=== PATIENT | female | born 1975 | race Caucasian/White ===

== ENCOUNTER 2017-10-06 10:07 | Inpatient (IN) | payer OTHER, MEDICAID ==
--- NOTE | 2017-10-06 10:27 | EDPHY ---
H & P HPI/ROS: Chief Complaint: High blood sugar HPI: 42-year-old woman with a history of type 2 diabetes coming from [facility] with a blood sugar that is too high to read. Patient states she has been feeling unwell since yesterday. She has had general fatigue, lightheadedness, frequent urination. Has not had any fevers or chills. No cough. No body aches. No abdominal pain. She is currently menstruating and has been passing large amounts of clot as well. No pelvic pain. She does have a history of DVT on Xarelto. She has been taking her medications as prescribed but has not been able to take them in the last 24 hr. She has also not been able to check her blood sugar she says for the last 24 hr. ROS: 10 point Review of Systems is negative except as noted in the HPI. PMH: Type 2 diabetes, DVT on Xarelto, PE, menorrhagia, gastritis, bipolar disorder Social History: No smoking, no alcohol, no recreational drug use Family History: non-contributory Physical Exam: Gen: Awake, Alert, No Distress HEENT: Nose: no rhinorrhea Eyes: PERRLA, EOMI Mouth: Moist mucosa Neck: Supple, no JVD Chest: nontender, lungs clear to auscultation Heart: S1, S2 normal, no murmur Abd: Obese, Soft, non-tender, no guarding Back: no CVA tenderness, no midline tenderness Ext: no edema, non-tender Skin: no rash Neuro: CN II-XII intact, Sensation grossly intact, Strength 5/5 in bilateral upper and lower extremities - Medical/Surgical History Hx Asthma: Yes Hx Chronic Respiratory Disease: No Hx Diabetes: No Hx Cardiac Disease: No Hx Renal Disease: No Hx Cirrhosis: No Hx Alcoholism: No Hx HIV/AIDS: No Hx Splenectomy or Spleen Trauma: No Other PMH: MEDICAL: ADHD, Bipolar II,. aurgery: malformation Kiari, gum disease , Constitutional: Initial Vital Signs Temperature (C) 36.9 C 10/06/17 10:27 Heart Rate 115 H 10/06/17 10:27 Respiratory Rate 18 10/06/17 10:27 Blood Pressure 101/70 10/06/17 10:27 O2 Sat (%) 100 10/06/17 10:27 O2 Delivery Mode Room Air Allergies/Adverse Reactions: butorphanol tartrate [From Stadol] Allergy (Unknown, Verified 01/27/11 20:07) erythromycin base [Erythromycin Base] Allergy (Unknown, Verified 01/27/11 20:07) Home Medications: Medication Instructions Recorded Atb For Gum Infection 01/27/11 Cephalexin [Keflex] 500 mg PO QID 10 Days cap 01/27/11 Sulfamethox/Trimeth 800/160 Mg 1 tab PO BID 10 Days tab 01/27/11 [Bactrim DS] Mbx Soln;Maalox/Diphen/Lido 5 ml PO PRN PRN #150 ml 09/09/13 [Maalox/Diphenhydramine/Lido] Medical Decision Making - Diagnostics EKG Interpretation: ECG time 10:25 a.m., sinus tachycardia with a rate of 105, borderline left axis deviation, nonspecific T-wave abnormalities in V1 through V3, no acute ST-T changes. ED Course/Re-evaluation: 42-year-old woman with hyperglycemia, med in [place] sugar, lightheadedness and fainting with a hemoglobin of 3 in the clinic today. Here she has an H&H of 4.9 and 14.1. She has continued past vaginal clots. I have discussed with MITZY Holcomb. She is requesting an ultrasound. Will consult on the patient. I have also ordered 2 U of packed red cells to be transfused. I discussed with the hospitalist. Patient to be admitted to the PCU under Dr. Escalante. - Data Points Laboratory Results: Laboratory Results 10/06/17 10:10 10/06/17 10:10 10/06/17 10/06/17 10/06/17 11:05 10:21 10:20 WBC RBC Hgb POC Hgb 5.1 gm/dL L* gm/dL (12.6-16.3) Hct POC Hct 15 % L* % (38-47) MCV MCH MCHC RDW Plt Count MPV Neut % (Auto) Lymph % (Auto) [place] % (Auto) Eos % (Auto) Baso % (Auto) Nucleat RBC Rel Count Absolute Neuts (auto) Absolute Lymphs (auto) Absolute Monos (auto) Absolute Eos (auto) Absolute Basos (auto) Absolute Nucleated RBC Immature Gran % Immature Gran # Platelet Estimate Polychromasia Hypochromasia Smear Review By PT INR APTT POC Sodium 132 mEq/L L mEq/L (135-145) Sodium POC Potassium 4.0 mEq/L mEq/L (3.3-5.0) Potassium POC Chloride 98 mEq/L mEq/L (97-110) Chloride Carbon Dioxide Anion Gap POC BUN 14 mg/dL mg/dL (7-23) BUN Creatinine POC Creatinine 0.8 mg/dL mg/dL (0.6-1.0) Estimated GFR Glucose POC Glucose 450 mg/dL H mg/dL (70-100) Calcium Beta HCG, Qual Urine Color RED Urine Appearance CLOUDY Urine pH TNP Ur Specific [place] TNP Urine Protein TNP Urine Ketones TNP Urine Blood TNP Urine Nitrate TNP Urine Bilirubin TNP Urine Urobilinogen TNP Ur Leukocyte Esterase TNP Urine RBC 50-182 /hpf H /hpf (0-3) Urine WBC 50-182 /hpf H /hpf (0-3) Ur Epithelial Cells NONE SEEN /lpf /lpf (NONE-1+) Urine Glucose TNP Patient ABO/Rh A POSITIVE Antibody Screen NEGATIVE Crossmatch IS Only See Detail 10/06/17 10/06/17 10/06/17 10:10 10:10 10:10 WBC RBC Hgb POC Hgb Hct POC Hct MCV MCH MCHC RDW Plt Count MPV Neut % (Auto) Lymph % (Auto) [place] % (Auto) Eos % (Auto) Baso % (Auto) Nucleat RBC Rel Count Absolute Neuts (auto) Absolute Lymphs (auto) Absolute Monos (auto) Absolute Eos (auto) Absolute Basos (auto) Absolute Nucleated RBC Immature Gran % Immature Gran # Platelet Estimate Polychromasia Hypochromasia Smear Review By PT 16.9 SEC H SEC (12.0-15.0) INR 1.36 H (0.83-1.16) APTT 24.6 SEC SEC (23.0-38.0) POC Sodium Sodium 132 mEq/L L mEq/L (135-145) POC Potassium Potassium 4.4 mEq/L mEq/L (3.5-5.2) POC Chloride Chloride 100 mEq/L mEq/L (97-110) Carbon Dioxide 16 mEq/l L mEq/l (22-31) Anion Gap 16 mEq/L mEq/L (8-16) POC BUN BUN 13 mg/dL mg/dL (7-23) Creatinine 0.8 mg/dL mg/dL (0.6-1.0) POC Creatinine Estimated GFR > 60 Glucose 433 mg/dL H mg/dL (70-100) POC Glucose Calcium 8.1 mg/dL L mg/dL (8.5-10.4) Beta HCG, Qual NEGATIVE Urine Color Urine Appearance Urine pH Ur Specific [place] Urine Protein Urine Ketones Urine Blood Urine Nitrate Urine Bilirubin Urine Urobilinogen Ur Leukocyte Esterase Urine RBC Urine WBC Ur Epithelial Cells Urine Glucose Patient ABO/Rh Antibody Screen Crossmatch IS Only 10/06/17 10:10 WBC 13.82 10^3/uL H 10^3/uL (3.80-9.50) RBC 1.76 10^6/uL L 10^6/uL (4.18-5.33) Hgb 4.9 g/dL L* g/dL (12.6-16.3) POC Hgb Hct 14.1 % L* % (38.0-47.0) POC Hct MCV 80.1 fL L fL (81.5-99.8) MCH 27.8 pg L pg (27.9-34.1) MCHC 34.8 g/dL g/dL (32.4-36.7) RDW 14.1 % % (11.5-15.2) Plt Count 284 10^3/uL 10^3/uL (150-400) MPV 11.5 fL fL (8.7-11.7) Neut % (Auto) 83.8 % H % (39.3-74.2) Lymph % (Auto) 11.9 % L % (15.0-45.0) [place] % (Auto) 3.3 % L % (4.5-13.0) Eos % (Auto) 0.1 % L % (0.6-7.6) Baso % (Auto) 0.3 % % (0.3-1.7) Nucleat RBC Rel Count 0.0 % % (0.0-0.2) Absolute Neuts (auto) 11.58 10^3/uL H 10^3/uL (1.70-6.50) Absolute Lymphs (auto) 1.65 10^3/uL 10^3/uL (1.00-3.00) Absolute Monos (auto) 0.46 10^3/uL 10^3/uL (0.30-0.80) Absolute Eos (auto) 0.01 10^3/uL L 10^3/uL (0.03-0.40) Absolute Basos (auto) 0.04 10^3/uL 10^3/uL (0.02-0.10) Absolute Nucleated RBC 0.00 10^3/uL 10^3/uL (0-0.01) Immature Gran % 0.6 % % (0.0-1.1) Immature Gran # 0.08 10^3/uL 10^3/uL (0.00-0.10) Platelet Estimate ADEQUATE (ADEQ) Polychromasia 2+ H Hypochromasia 1+ H Smear Review By Pending PT INR APTT POC Sodium Sodium POC Potassium Potassium POC Chloride Chloride Carbon Dioxide Anion Gap POC BUN BUN Creatinine POC Creatinine Estimated GFR Glucose POC Glucose Calcium Beta HCG, Qual Urine Color Urine Appearance Urine pH Ur Specific [place] Urine Protein Urine Ketones Urine Blood Urine Nitrate Urine Bilirubin Urine Urobilinogen Ur Leukocyte Esterase Urine RBC Urine WBC Ur Epithelial Cells Urine Glucose Patient ABO/Rh Antibody Screen Crossmatch IS Only Medications Given: Discontinued Medications Sodium Chloride (Ns) 1,000 mls @ 0 mls/hr IV ONCE ONE; Wide Open PRN Reason: Protocol Stop: 10/06/17 10:29 Last Admin: 10/06/17 10:33 Dose: 1,000 mls Point of Care Test Results: 10/06/17 10:21 POC Sodium 132 L POC Potassium 4.0 POC Chloride 98 POC BUN 14 POC Creatinine 0.8 POC Glucose 450 H Departure - Departure Disposition: [facility] Inpatient Acute Clinical Impression: Vaginal bleeding, Anemia, Hyperglycemia Condition: Serious Referrals: Patient,NotPresent [Primary Care Provider] - As per Instructions
--- NOTE | 2017-10-06 10:27 | CPEKG ---
Heart Rate: 105 RR Interval: 571 P-R Interval: 144 QRSD Interval: 90 QT Interval: 344 QTC Interval: 455 P [place]: 49 QRS [place]: -23 T Wave [place]: 15 EKG Severity - BORDERLINE ECG - EKG Impression: SINUS TACHYCARDIA EKG Impression: BORDERLINE LEFT AXIS DEVIATION EKG Impression: BORDERLINE T ABNORMALITIES, ANTERIOR LEADS Electronically Signed By: Jhonatan Hinkle 06-Oct-2017 14:14:20
[2017-10-06] MEDS ORDERED: NS 1,000 ML IV ONE (10:28)
[2017-10-06 10:38] LABS: PLATELET COUNT 284 10^3/uL (150-400)
[2017-10-06 10:53] LABS: INR 1.36 (0.83-1.16); PROTIME(PATIENT) 16.9 SEC (12.0-15.0)
[2017-10-06] MEDS ORDERED: ALTEPLASE 2 MG VIAL IVP PRN (12:36)
[2017-10-06] MEDS ORDERED: D50W 25 GM/50 ML SYR IVP PRN (12:41)
[2017-10-06] MEDS ORDERED: INSULIN REGULAR HUMAN 100 UNIT/ML UNIT IVP ONE ×2 (12:42→16:00)
[2017-10-06] MEDS ORDERED: ONDANSETRON DISINTEGRATING 4 MG TAB PO PRN (12:43)
[2017-10-06] MEDS ORDERED: ACETAMINOPHEN 325 MG TAB PO PRN (12:43)
[2017-10-06] MEDS ORDERED: ONDANSETRON 4 MG/2 ML VIAL IVP PRN (12:43)
--- NOTE | 2017-10-06 12:53 | PDGENHP ---
History and Physical - Chief Complaint vaginal bleeding - History of Present Illness 42 yo female with recent hospitalization in September to [facility] for RLE DVT and bilateral PE who was started on Xarelto p/w vaginal bleeding and acute blood loss anemia. Hgb 5.1 in the E.D.. 2 units prbc have been ordered. She feels weak. BP is soft. Reports large clots from vagina. She has a hx of tubal ligation in 2001. She is , LMP Oct 03, 2017. She has a hx of menorrhagia. Denies CP or SOB. She does have bilateral leg swelling which she says is new. She does not have abd pain. PMHx: RLE DVT, bilateral PE, chronic AC, Menorrhagia, Gastritis, Bipolar, hx of polysubstance abuse SHx: tubal ligation SocHx: no current T/E/I use FmHx: hx of blood clots, mother from a PE Studies: EKG, no ischemia Pelvic US: normal endometrial thickening, mild myometrial thickening, normal ovarian morphology History Information - Allergies/Home Medication List Allergies/Adverse Reactions: butorphanol tartrate [From Stadol] Allergy (Unknown, Verified 01/27/11 20:07) erythromycin base [Erythromycin Base] Allergy (Unknown, Verified 01/27/11 20:07) Home Medications: Atb For Gum Infection 01/27/11 [Last Taken Unknown] I have personally reviewed and updated: medical history, social history - Social History Smoking Status: Never smoked Review of Systems Review of Systems: ROS: 10pt was reviewed & negative except for what was stated in HPI & below Physical Exam Physical Exam: Temp Pulse Resp BP Pulse Ox 36.9 C 118 H 18 95/56 L 95 10/06/17 12:39 10/06/17 12:39 10/06/17 12:39 10/06/17 12:39 10/06/17 12:39 Constitutional: no apparent distress Eyes: PERRL, EOMI Ears, Nose, Mouth, Throat: moist mucous membranes, hearing normal Cardiovascular: tachycardia, edema (1+ bilateral) Respiratory: no respiratory distress, no rales or rhonchi Gastrointestinal: normoactive bowel sounds, soft, non-tender abdomen Skin: warm Musculoskeletal: full muscle strength Neurologic: AAOx3, sensation intact bilaterally Psychiatric: interacting appropriately, not anxious, not encephalopathic, thought process linear Lymph, Heme, Immunologic: No petechiae Lab Data & Imaging Review 10/06/17 10:10 10/06/17 10:10 WBC 13.82 10^3/uL (3.80-9.50) H 10/06/17 10:10 RBC 1.76 10^6/uL (4.18-5.33) L 10/06/17 10:10 Hgb 4.9 g/dL (12.6-16.3) L* 10/06/17 10:10 POC Hgb 5.1 gm/dL (12.6-16.3) L* 10/06/17 10:21 Hct 14.1 % (38.0-47.0) L* 10/06/17 10:10 POC Hct 15 % (38-47) L* 10/06/17 10:21 MCV 80.1 fL (81.5-99.8) L 10/06/17 10:10 MCH 27.8 pg (27.9-34.1) L 10/06/17 10:10 MCHC 34.8 g/dL (32.4-36.7) 10/06/17 10:10 RDW 14.1 % (11.5-15.2) 10/06/17 10:10 Plt Count 284 10^3/uL (150-400) 10/06/17 10:10 MPV 11.5 fL (8.7-11.7) 10/06/17 10:10 Neut % (Auto) 83.8 % (39.3-74.2) H 10/06/17 10:10 Lymph % (Auto) 11.9 % (15.0-45.0) L 10/06/17 10:10 [place] % (Auto) 3.3 % (4.5-13.0) L 10/06/17 10:10 Eos % (Auto) 0.1 % (0.6-7.6) L 10/06/17 10:10 Baso % (Auto) 0.3 % (0.3-1.7) 10/06/17 10:10 Nucleat RBC Rel Count 0.0 % (0.0-0.2) 10/06/17 10:10 Absolute Neuts (auto) 11.58 10^3/uL (1.70-6.50) H 10/06/17 10:10 Absolute Lymphs (auto) 1.65 10^3/uL (1.00-3.00) 10/06/17 10:10 Absolute Monos (auto) 0.46 10^3/uL (0.30-0.80) 10/06/17 10:10 Absolute Eos (auto) 0.01 10^3/uL (0.03-0.40) L 10/06/17 10:10 Absolute Basos (auto) 0.04 10^3/uL (0.02-0.10) 10/06/17 10:10 Absolute Nucleated RBC 0.00 10^3/uL (0-0.01) 10/06/17 10:10 Immature Gran % 0.6 % (0.0-1.1) 10/06/17 10:10 Immature Gran # 0.08 10^3/uL (0.00-0.10) 10/06/17 10:10 Platelet Estimate ADEQUATE (ADEQ) 10/06/17 10:10 Polychromasia 2+ H 10/06/17 10:10 Hypochromasia 1+ H 10/06/17 10:10 PT 16.9 SEC (12.0-15.0) H 10/06/17 10:10 INR 1.36 (0.83-1.16) H 10/06/17 10:10 APTT 24.6 SEC (23.0-38.0) 10/06/17 10:10 POC Sodium 132 mEq/L (135-145) L 10/06/17 10:21 Sodium 132 mEq/L (135-145) L 10/06/17 10:10 POC Potassium 4.0 mEq/L (3.3-5.0) 10/06/17 10:21 Potassium 4.4 mEq/L (3.5-5.2) 10/06/17 10:10 POC Chloride 98 mEq/L (97-110) 10/06/17 10:21 Chloride 100 mEq/L (97-110) 10/06/17 10:10 Carbon Dioxide 16 mEq/l (22-31) L 10/06/17 10:10 Anion Gap 16 mEq/L (8-16) 10/06/17 10:10 POC BUN 14 mg/dL (7-23) 10/06/17 10:21 BUN 13 mg/dL (7-23) 10/06/17 10:10 Creatinine 0.8 mg/dL (0.6-1.0) 10/06/17 10:10 POC Creatinine 0.8 mg/dL (0.6-1.0) 10/06/17 10:21 Estimated GFR > 60 10/06/17 10:10 Glucose 433 mg/dL (70-100) H 10/06/17 10:10 POC Glucose 450 mg/dL (70-100) H 10/06/17 10:21 Calcium 8.1 mg/dL (8.5-10.4) L 10/06/17 10:10 Beta HCG, Qual NEGATIVE 10/06/17 10:10 Urine Color RED 10/06/17 10:20 Urine Appearance CLOUDY 10/06/17 10:20 Urine pH TNP 10/06/17 10:20 Ur Specific [place] TNP 10/06/17 10:20 Urine Protein TNP 10/06/17 10:20 Urine Ketones TNP 10/06/17 10:20 Urine Blood TNP 10/06/17 10:20 Urine Nitrate TNP 10/06/17 10:20 Urine Bilirubin TNP 10/06/17 10:20 Urine Urobilinogen TNP 10/06/17 10:20 Ur Leukocyte Esterase TNP 10/06/17 10:20 Urine RBC 50-182 /hpf (0-3) H 10/06/17 10:20 Urine WBC 50-182 /hpf (0-3) H 10/06/17 10:20 Ur Epithelial Cells NONE SEEN /lpf (NONE-1+) 10/06/17 10:20 Urine Glucose TNP 10/06/17 10:20 Patient ABO/Rh A POSITIVE 10/06/17 11:05 Antibody Screen NEGATIVE 10/06/17 11:05 Crossmatch IS Only See Detail 10/06/17 11:05 Assessment & Plan Assessment: #Acute blood loss anemia #Menorrhagia #chronic AC #RLE DVT and bilateral PE's #DMII with Hyperglycemia #Hyponatremia #Pedal edema Plan: Admission Dr. Bourgeois with [employer] to follow transfuse 2 units additional IVF now as BP is borderline PICC line, poor vein access, hx of IVDA Hold Xarelto TTE Doppler LE's Insulin and ISS SCDs Full Code total critical care time is 75 mins
--- NOTE | 2017-10-06 14:24 | ECHO ---
[email or web address] [address] Main: [phone] Fax: Transthoracic Echocardiogram Name: KIERSTEN SEPULVEDA MR#: [id number] Study Date: 10/06/2017 Study Time: 01:39 PM Date of : 1975 Age: 42 year(s) Height: 165.1 cm (65 in.) Weight: 86.18 kg (190 lb.) BSA: 1.94 m2 Gender: Female Examination: Echo Indication: CHF Image Quality: Contrast: Requested by: Matty Escalante BP: 109 mmHg/64 mmHg Heart Rate: Rhythm: Tachycardia Indication: CHF Procedure Staff Cvt Rn: Silverio Holloway RDCS Reading Physician: Alexander Alegria Requesting Provider: Conclusions: Normal size left ventricle. Normal global systolic LV function. EF is 64 %. No regional wall motion abnormality. Diastolic dysfunction is present. . Normal RV function. Trivial tricuspid valve regurgitation. The pulmonary artery pressure is mildly increased. There is pericardial fat. Measurements: Chambers Valvular Assessment AV/MV Valvular Assessment TV/PV Normal Normal Normal Name Value Range Name Value Range Name Value Range Ao Kalina (MM): 2.7 cm (2.2 cm-3.7 AV Vmax: 1.53 m/s (1 m/s-1.7 TR Vmax: 2.57 mm/s ( - ) cm) m/s) TR PGmax: 26 mmHg ( - ) IVSd (2D): 0.9 cm (0.6 cm-1.1 AV maxP mmHg ( - ) syst. PAP: 31 mmHg ( - ) cm) LVOT Vmax: 0.81 m/s (0.7 m/s-1.1 PV Vmax: 1.10 m/s (0.6 m/s-0.9 LVDd (2D): 3.9 cm (3.9 cm-5.3 m/s) m/s) cm) MV E Vmax: 0.96 m/s ( - ) PV PGmax: 5 mmHg ( - ) LVDs (2D): 2.6 cm (2.1 cm-4 MV A Vmax: 0.42 m/s ( - ) cm) MV E/A: 2.29 ( - ) LVPWd (2D): 1.0 cm ( - ) LVEF (2D): 64 (>=54 %) RVDd(2D): 2.8 cm (1.9 cm-3.8 cmmm) Continued Measurements: Chambers Valvular Assessment AV/MV Valvular Assessment TV/PV Patient: KIERSTEN SEPULVEDA Study Date: 10/06/2017 Page 1 of 2 01:39 PM Name Value Name Value Name Value LADs Lon.0 cm MV E/E' Septal: 9.70 CVP (est.): 5 mmHg LA Area: 12.8 cm2 MV E/E' Lateral: 9.60 Findings: Left Ventricle: Normal size left ventricle. No LV hypertrophy. Normal global systolic LV function. EF is 64 %. No regional wall motion abnormality. Diastolic dysfunction is present. . Right Ventricle: Normal size right ventricle. Normal RV function. Left Atrium: The left atrium is normal in size. Right Atrium: The right atrium is normal in size. Mitral Valve: The mitral valve is normal in appearance. The mitral valve is normal in appearance and function. Aortic Valve: The aortic valve is normal in appearance and function. The aortic valve is tri-leaflet. There is no aortic valve regurgitation. Tricuspid Valve: The tricuspid valve is normal in appearance and function. Trivial tricuspid valve regurgitation. The pulmonary artery pressure is mildly increased. Pulmonic Valve: The pulmonic valve is normal in appearance and function. Aorta: The aorta is normal. Normal size aortic root measuring 2.7 cm. Pericardium: No pericardial effusion. There is pericardial fat. (No Signature Object) Patient: KIERSTEN SEPULVEDA Study Date: 10/06/2017 Page 2 of 2 01:39 PM [id number]
--- NOTE | 2017-10-06 17:12 | PDMN ---
Medical Necessity Medical necessity: est los>2mn for acute blood loss anemia, menorrhagia, hyponatremia, recent RLE DVT, bilat PE on chronic AC, DM w/ hyperglycemia; admit for transfusions, [employer] consult, IVF; other hx, bipolar and hx substance abuse; per order and H&P 10/06/17
[2017-10-06] MEDS: INSULIN LISPRO 100 UNIT/ML SC SCH (18:30)
--- NOTE | 2017-10-06 19:16 | SOAPPROG ---
[facility] Progress Note Assessment/Plan: Assessment: 42 y/o with h/o DVT/ PE on Xerolto with menometrorrhagia and symptomatic anemia Plan: Discussed surgical management for menometrorrhagia because she is not a candidate for medical management. I recommend a Hysteroscopy Dilation and Curettage, Isabel endometrial ablation with a frozen specimen for pathology. I do not suspect hyperplasia or atypia as a cause of her bleeding because she has a normal uterus with endometrium on ultrasound and she has had a normal endometrial biopsy in 2014 and has been on OCP's until 08/2017. I want her to stabilize her H/H, her glucose values and vital signs in preparation for surgery. Will schedule for Sunday 10/08 if possible. 10/06/17 19:20 Subjective: Pt seen examined and full history and physical completed. Please see previously dictated note for full details. Pt currently is feeling better, she is ambulating and voiding with min dizziness now. Her bleeding has continued tonight but is slowing. Objective: Vital Signs Temp Pulse Resp BP Pulse Ox 37.8 C 111 H 16 122/76 H 99 10/06/17 18:00 10/06/17 18:00 10/06/17 18:00 10/06/17 18:00 10/06/17 18:00 Laboratory Results 10/06/17 16:35 10/06/17 16:35 10/05/17 10/06/17 10/07/17 05:59 05:59 05:59 Intake Total 1000 Balance 1000 PT 16.9 SEC (12.0-15.0) H 10/06/17 10:10 INR 1.36 (0.83-1.16) H 10/06/17 10:10 Physical Exam - Physical Exam General Appearance: WD/WN, alert, no apparent distress Neck: non-tender, full range of motion, supple Respiratory: chest non-tender, lungs clear, normal breath sounds Cardiac/Chest: tachycardia Abdomen: normal bowel sounds, non-tender, soft Pelvic Exam: normal external exam, vaginal bleeding (mod flow small clots, no CMT normal uterine size, shape ) Skin: other (pale appearing) Extremities: swelling (1+), Kailyn's sign (neg) ICD10 Worksheet Patient Problems: Problems Problem Status Onset Anemia Acute Hyperglycemia Acute Vaginal bleeding Acute
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
[2017-10-06] MEDS: OLANZapine 2.5 MG TAB PO SCH (22:05)
[2017-10-06] MEDS: metFORMIN HCL 500 MG TAB PO SCH (22:05)
[2017-10-06] MEDS: GABAPENTIN 300 MG CAP PO SCH (22:05)
[2017-10-07 06:13] LABS: PLATELET COUNT 158 10^3/uL (150-400)
[2017-10-07] MEDS ORDERED: Herbals/Supplements -Info Only PO SCH (09:00)
[2017-10-07] MEDS ORDERED: medroxyPROGESTERone 10 MG TAB PO SCH (09:00)
[2017-10-07] MEDS: metFORMIN HCL 500 MG TAB PO SCH (09:52)
[2017-10-07] MEDS: GABAPENTIN 300 MG CAP PO SCH ×3 (09:52→21:59)
[2017-10-07] MEDS: INSULIN LISPRO 100 UNIT/ML SC SCH ×3 (10:09→18:01)
--- NOTE | 2017-10-07 14:04 | HOSPPROG ---
Hospitalist Progress Note Assessment/Plan: #Acute blood loss anemia #Menorrhagia #chronic AC #RLE DVT and bilateral PE's -RLE with chronic DVT findings, non occlusive #DMII with Hyperglycemia -A1C is pending -Start Lantus -She likely has chronic glucose elevation #Hyponatremia #Pedal edema #Hypotension Plan: The pt appears to be actively bleeding. Her Hgb has dropped again to the 5's and she is receiving 2 units of blood. I have discussed the case with DIGITAL ASSISTANT and they will likely proceed with D&C today. she is NPO Transfusion as ordered, serial H/H Cont IVF Cont PICC line Hold Xarelto Insulin and ISS SCDs Full Code total critical care time is 35 mins in this patient with acute symptomatic blood loss anemia with active menorrhagia Subjective: SBP low 100's. NPO. No CP or SOB. No N/V. Objective: Vital Signs Temp Pulse Resp BP Pulse Ox 36.9 C 103 H 20 109/67 98 10/07/17 11:07 10/07/17 11:07 10/07/17 11:07 10/07/17 11:07 10/07/17 11:07 Laboratory Results 10/07/17 06:00 10/07/17 06:00 10/06/17 10/07/17 10/08/17 05:59 05:59 05:59 Intake Total 1200 Output Total 1600 400 Balance -400 -400 PT 16.9 SEC (12.0-15.0) H 10/06/17 10:10 INR 1.36 (0.83-1.16) H 10/06/17 10:10 - Physical Exam Constitutional: no apparent distress Eyes: PERRL Ears, Nose, Mouth, Throat: moist mucous membranes Cardiovascular: regular rate and rhythym, No edema Respiratory: no respiratory distress Gastrointestinal: normoactive bowel sounds Skin: warm Musculoskeletal: full muscle strength Neurologic: AAOx3 Psychiatric: interacting appropriately, not anxious, not encephalopathic ICD10 Worksheet Patient Problems: Problems Problem Status Onset Anemia Acute Hyperglycemia Acute Vaginal bleeding Acute
[2017-10-07] MEDS: NS 1,000 ML IV SCH (14:20)
[2017-10-07] MEDS: INSULIN GLARGINE 100 UNITS/ML UNIT SC SCH (14:21)
[2017-10-07] MEDS ORDERED: NALOXONE HCL 0.4 MG/ML INJ IVP PRN (15:05)
[2017-10-07] MEDS ORDERED: ONDANSETRON 4 MG/2 ML VIAL IVP PRN (15:05)
[2017-10-07] MEDS ORDERED: PROMETHAZINE HCL 25 MG/ML INJ IVP PRN (15:05)
[2017-10-07] MEDS ORDERED: fentaNYL 100 MCG/2 ML INJ IVP PRN (15:05)
[2017-10-07] MEDS ORDERED: HYDROmorphONE/DILAUDID 1 MG/ML INJ IVP PRN (15:05)
[2017-10-07] MEDS ORDERED: ALBUTEROL 3 ML DEYVIAL IH PRN (15:05)
[2017-10-07] MEDS ORDERED: DEXAMETHASONE 4 MG/ML VIAL IVP PRN (15:05)
--- NOTE | 2017-10-07 15:05 | PDANEPAE ---
ANE History of Present Illness here for hysteroscopy ANE Past Medical History - Cardiovascular History Hx Hypertension: No Hx Arrhythmias: No Hx Chest Pain: No Hx Coronary Artery / Peripheral Vascular Disease: No Hx CHF / Valvular Disease: No Hx Palpitations: No - Pulmonary History Hx COPD: No Hx Asthma/Reactive Airway Disease: No Hx Recent Upper Respiratory Infection: No Hx Oxygen in Use at Home: No Hx Sleep Apnea: No Sleep Apnea Screening Result - Last Documented: Negative - Endocrine History Hx Diabetes: Yes Hypothyroid: No Hyperthyroid: No Obesity: mild - Renal History Hx Renal Disorders: No - Liver History Hx Hepatic Disorders: No - Neurological & Psychiatric Hx Hx Neurological and Psychiatric Disorders: No - Other Health History Other Health History: history of DVT and PE on anticoagulation - Chronic Pain History Chronic Pain: No ANE Review of Systems Review of systems is: negative Review of Systems: - Exercise capacity Exercise capacity: >=4 METS ANE Patient History - Allergies Allergies/Adverse Reactions: butorphanol tartrate [From Stadol] Allergy (Unknown, Verified 10/06/17 16:23) Other-Enter Comments erythromycin base [Erythromycin Base] Allergy (Unknown, Verified 10/06/17 16:23) Swelling/neck,face,throat - Home Medications Home medications: home medication list seen and reviewed Home Medications: Atorvastatin Calcium [Lipitor 10 mg (*)] 10 mg PO HS 10/06/17 [Last Taken ] Gabapentin [Neurontin 300 MG (*)] 300 mg PO TID 10/06/17 [Last Taken 10/05/17] Herbals/Supplements -Info Only 1 ea PO DAILY 10/06/17 [Last Taken Unknown] Linagliptin [Tradjenta] 5 mg PO DAILY 10/06/17 [Last Taken 10/05/17] Metformin HCl [Metformin 1000 mg] 1,000 mg PO BID 10/06/17 [Last Taken 10/05/17] OLANZapine [ZyPREXA 2.5 mg (*)] 2.5 mg PO DAILY@22 10/06/17 [Last Taken 10/05/17 ] Rivaroxaban [Xarelto] 20 mg PO DAILY 10/06/17 [Last Taken 10/03/17] medroxyPROGESTERone ACETATE [Medroxyprogesterone Acetate] 10 mg PO DAILY [Last Taken 10/04/17] - NPO status NPO Status: no food or drink >8 hours NPO Since - Liquids (Date): 10/06/17 NPO Since - Liquids (Time): 23:59 NPO Since - Solids (Date): 10/06/17 NPO Since - Solids (Time): 23:59 - Smoking Hx Smoking Status: Former smoker ANE Labs/Vital Signs - Labs Result Diagrams: 10/07/17 06:00 10/07/17 06:00 - Vital Signs Vital Signs: reviewed preoperatively; see RN documention for details Blood Pressure: 120/68 Heart Rate: 101 Respiratory Rate: 14 O2 Sat (%): 98 Height: 165.1 cm Weight: 86.183 kg ANE Physical Exam - Airway Neck exam: FROM Mallampati Score: Class 1 - Pulmonary Pulmonary: no respiratory distress - Cardiovascular Cardiovascular: regular rate and rhythym - ASA Status ASA Status: III ANE Anesthesia Plan Anesthesia Plan: GA w LMA
[2017-10-07] MEDS ORDERED: fentaNYL 100 MCG/2 ML INJ ONE (15:07)
[2017-10-07] MEDS ORDERED: PROPOFOL/EMULSION 500 MG/50 ML BOTTLE IV ONE (15:09)
--- NOTE | 2017-10-07 15:14 | PDCONSULT ---
Surgical Pathologist Note: Subjective: I was contacted by on-call Hospitalist Dr. Escalante earlier this afternoon regarding Roxanne's bleeding. Her H/H was trending down as below overnight, requiring 2 additional unite of PRBC's this morning. Clinically still seeing ongoing vaginal bleeding overnight and this morning. Per nursing - saturating a heavy hospital pad every 2 hrs. Subjectively she was much the same - minimal pain, tired and weak. Objective: Temp Pulse Resp BP Pulse Ox 36.6 C 100 11 L 111/72 100 10/07/17 16:23 10/07/17 16:23 10/07/17 16:36 10/07/17 16:36 10/07/17 16:48 O2 (L/minute) 4 Labs: Laboratory Tests 10/06/17 10/06/17 10/07/17 10:10 16:35 01:00 Hgb 4.9 L* 7.5 L 6.0 L 10/07/17 06:00 Hgb 5.2 L* 10/07/17 06:00 10/07/17 06:00 Patient ABO/Rh A POSITIVE 10/06/17 11:05 WBC 9.42 10^3/uL (3.80-9.50) 10/07/17 06:00 RBC 1.83 10^6/uL (4.18-5.33) L 10/07/17 06:00 Hgb 5.2 g/dL (12.6-16.3) L* 10/07/17 06:00 POC Hgb 5.1 gm/dL (12.6-16.3) L* 10/06/17 10:21 Hct 14.8 % (38.0-47.0) L* 10/07/17 06:00 POC Hct 15 % (38-47) L* 10/06/17 10:21 MCV 80.9 fL (81.5-99.8) L 10/07/17 06:00 MCH 28.4 pg (27.9-34.1) 10/07/17 06:00 MCHC 35.1 g/dL (32.4-36.7) 10/07/17 06:00 RDW 14.6 % (11.5-15.2) 10/07/17 06:00 Plt Count 158 10^3/uL (150-400) D 10/07/17 06:00 MPV 10.6 fL (8.7-11.7) 10/07/17 06:00 Neut % (Auto) 66.5 % (39.3-74.2) 10/07/17 06:00 Lymph % (Auto) 24.7 % (15.0-45.0) 10/07/17 06:00 Curry % (Auto) 7.1 % (4.5-13.0) 10/07/17 06:00 Eos % (Auto) 1.0 % (0.6-7.6) 10/07/17 06:00 Baso % (Auto) 0.3 % (0.3-1.7) 10/07/17 06:00 Nucleat RBC Rel Count 0.0 % (0.0-0.2) 10/07/17 06:00 Absolute Neuts (auto) 6.26 10^3/uL (1.70-6.50) 10/07/17 06:00 Absolute Lymphs (auto) 2.33 10^3/uL (1.00-3.00) 10/07/17 06:00 Absolute Monos (auto) 0.67 10^3/uL (0.30-0.80) 10/07/17 06:00 Absolute Eos (auto) 0.09 10^3/uL (0.03-0.40) 10/07/17 06:00 Absolute Basos (auto) 0.03 10^3/uL (0.02-0.10) 10/07/17 06:00 Absolute Nucleated RBC 0.00 10^3/uL (0-0.01) 10/07/17 06:00 Immature Gran % 0.4 % (0.0-1.1) 10/07/17 06:00 Immature Gran # 0.04 10^3/uL (0.00-0.10) 10/07/17 06:00 Platelet Estimate ADEQUATE (ADEQ) 10/07/17 06:00 Polychromasia 1+ H 10/07/17 06:00 Hypochromasia 2+ H 10/07/17 06:00 Microcytic Cells 2+ H 10/07/17 06:00 Oval Macrocytes 1+ H 10/07/17 06:00 Smear Review By Audrey QUINTERO MD 10/07/17 06:00 PT 16.9 SEC (12.0-15.0) H 10/06/17 10:10 INR 1.36 (0.83-1.16) H 10/06/17 10:10 APTT 24.6 SEC (23.0-38.0) 10/06/17 10:10 POC Sodium 132 mEq/L (135-145) L 10/06/17 10:21 Sodium 134 mEq/L (135-145) L 10/07/17 06:00 POC Potassium 4.0 mEq/L (3.3-5.0) 10/06/17 10:21 Potassium 4.1 mEq/L (3.5-5.2) 10/07/17 06:00 POC Chloride 98 mEq/L (97-110) 10/06/17 10:21 Chloride 104 mEq/L (97-110) 10/07/17 06:00 Carbon Dioxide 22 mEq/l (22-31) D 10/07/17 06:00 Anion Gap 8 mEq/L (8-16) 10/07/17 06:00 POC BUN 14 mg/dL (7-23) 10/06/17 10:21 BUN 14 mg/dL (7-23) 10/07/17 06:00 Creatinine 0.7 mg/dL (0.6-1.0) 10/07/17 06:00 POC Creatinine 0.8 mg/dL (0.6-1.0) 10/06/17 10:21 Estimated GFR > 60 10/07/17 06:00 Glucose 277 mg/dL (70-100) H 10/07/17 06:00 POC Glucose 184 mg/dL (70-100) H 10/07/17 16:28 Calcium 7.2 mg/dL (8.5-10.4) L 10/07/17 06:00 Magnesium 1.7 mg/dL (1.6-2.3) 10/07/17 06:00 Beta HCG, Qual NEGATIVE 10/06/17 10:10 Urine Color RED 10/06/17 10:20 Urine Appearance CLOUDY 10/06/17 10:20 Urine pH TNP 10/06/17 10:20 Ur Specific Lavonia TNP 10/06/17 10:20 Urine Protein TNP 10/06/17 10:20 Urine Ketones TNP 10/06/17 10:20 Urine Blood TNP 10/06/17 10:20 Urine Nitrate TNP 10/06/17 10:20 Urine Bilirubin TNP 10/06/17 10:20 Urine Urobilinogen TNP 10/06/17 10:20 Ur Leukocyte Esterase TNP 10/06/17 10:20 Urine RBC 50-182 /hpf (0-3) H 10/06/17 10:20 Urine WBC 50-182 /hpf (0-3) H 10/06/17 10:20 Ur Epithelial Cells NONE SEEN /lpf (NONE-1+) 10/06/17 10:20 Urine Glucose TNP 10/06/17 10:20 Patient ABO/Rh A POSITIVE 10/06/17 11:05 Antibody Screen NEGATIVE 10/06/17 11:05 Crossmatch IS Only See Detail 10/06/17 11:05 A/P: Discussed case with Dr. Escalante and Dr. Bourgeois. Given ongoing bleeding with worsening anemia, will go ahead with her procedure this afternoon. She is hemodynamically stable. I spoke with the patient prior moving to the OR, discussed again the planned operation including risks/benefits. We signed consent forms in person prior to OR. Doxycycline IV to be given for the case, will not need any abx afterwords unless otherwise indicated. We will send endometrial sample for STAT frozen section prior to ablation to ensure no occult hyperplasia/cancer. From our perspective after OR she can advance to general diet, does not need abx, shouldn't need more than Belden PO PRN for pain. Also from our perspective can restart Xeralto for anticoagulation at > 24hrs postop from this procedure - low bleeding risk. Prashanth Pantoja MD
[2017-10-07] MEDS ORDERED: LIDO/EPI 1% **for epidural** 30 ML SDV ONE (15:17)
[2017-10-07] MEDS ORDERED: SILVER NITRATE APPLICATOR 1 APPL TP ONE (15:21)
--- NOTE | 2017-10-07 15:36 | ASMTCMCOM ---
CM Note CM Note Notes: Spoke with RN; anticipate dc home independently when medically stable. CM will follow if needs/changes. Date Signed: 10/07/2017 03:36 PM Electronically Signed By:Fanny Munguia RN
[2017-10-07] MEDS ORDERED: DOXYCYCLINE INJ 100 MG in D5W 250 ML IV ONE (15:45)
[2017-10-07] MEDS ORDERED: HYDROCODONE/APAP 5/325 TAB PO PRN (16:39)
--- NOTE | 2017-10-07 16:49 | POSTOPPROG ---
Post Op Note Date of Operation: 10/07/17 Surgeon: Li Bourgeois Environmental Conservation Officer: Prashanth Pantoja Anesthesia: GET(General Endotracheal) Pre-op Diagnosis: Menometrorrhagia, Acute on chronic blood loss anemia, hyperglycemia Post-op Diagnosis: Same Indication: Acute blood loss anemia, heavy vaginal bleeding Procedure: Diagnostic hysteroscopy, Uterine curettage, Isabel endometrial ablation Findings: 9cm uterine sounding length, no polyps/fibroids, uniformly thin lining Inf/Abcess present in the surg proc area at time of surgery?: No EBL: Minimal Total fluids administered: 500cc Complications: None Specimen(s): Uterine curettings sent for frozen path prior to ablation - No evidence of hyperplasia or malignancy.
--- NOTE | 2017-10-07 16:57 | POSTANESTH ---
Post Anesthetic Evaluation Cardiovascular Status: Normal, Stable Respiratory Status: Normal, Stable Level of Consciousness/Mental Status: Can Participate in Eval, Moderately Sleepy Pain Control: Adequate, Prn Tx Ordered Nausea/Vomiting Control: Adequate, Prn Tx Ordered Complications Possibly Related to Anesthesia: None Noted
--- NOTE | 2017-10-07 21:36 | GOP ---
[f rep st] OPERATIVE REPORT DATE OF OPERATION: 10/07/2017 SURGEON: Li Bourgeois MD SCUBA DIVER: Prashanth Pantoja MD. ANESTHESIA: General anesthesia. ANESTHESIOLOGIST: Dr. Inocente Porter. PREOPERATIVE DIAGNOSIS: Menometrorrhagia and severe symptomatic anemia. POSTOPERATIVE DIAGNOSIS: Menometrorrhagia and severe symptomatic anemia. PROCEDURE PERFORMED: Hysteroscopy, dilation and curettage, Isabel endometrial ablation. FINDINGS: ESTIMATED BLOOD LOSS: Minimal blood loss. INDICATIONS: The patient is a 42-year-old 5, para 5-0-0-5, who was admitted to [facility] on 10/06/2017, due to severe symptomatic anemia secondary to menometrorrhagia. The pat ient had a longstanding history of menometrorrhagia and she was placed on oral contraceptive pills by her primary care doctor until August of 2017, when she experienced a DVT and a bilateral PE. She was taken off her oral contraceptive pills, started on Xarelto, and with her first period in September, she began having severe heavy bleeding, passing large clots, presented to [facility] , symptomatic with a hemoglobin of 4 and hematocrit of 14. She has multiple other medical concerns a nd was admitted to the hospitalist service where she has received a total of 4 units of blood. She h ad a pelvic ultrasound which revealed a thin endometrium 8 mm, no obvious anatomical abnormalities of the uterus, and normal ovaries. We consulted about treatment options for her bleeding and decided t he most prudent approach would be to avoid medical management with IV hormones, but proceed with surg ical management with a hysteroscopy, D and C, and endometrial ablation. The patient agreed to the pr ocedure. She understood the risks and benefits, including bleeding, infection, damage to the uterus including possible risk of perforation, damage to other organs if perforation were to occur, need for additional procedures if bleeding recurs, and electrolyte imbalances. She understood these risks an d benefits, agreed to proceed. DESCRIPTION OF PROCEDURE: Patient was taken to the operating room where she was placed under general anesthesia without difficulty and she was placed in a dorsal lithotomy position. An exam under anes thesia revealed a mobile anteverted anteflexed uterus, no obvious masses. A weighted speculum was pl aced in the vagina, and a Montilla retractor was used to visualize the cervix. The anterior lip of the c ervix was grasped with a Allen tenaculum. Her uterus sounded to 9.5 cm. Cervix was progressively d ilated with Garcia dilators to a #6.5. Her cervix measured 3 cm, giving a cavity length of 6.5. The Truclear hysteroscope was then gently advanced from the cervix to the fundus, and visualization of th e cavity was made. Patient has a slight arcuate-shaped uterine cavity. There were no polyps, no fib roids, no obvious abnormalities of her anatomy. Hysteroscope was then removed and a sharp curettage was performed in a clockwise fashion until a gritty texture was palpated throughout the entire endome trium. Dr. Rodriguez with pathology performed a frozen section to analyze the tissue and he reported th e tissue was benign. So we proceeded with the Isabel endometrial ablation. The Isabel device was gently advanced from the cervix to the fundus. The array was opened and the cervical seal was perfor med. The cavity assessment was passed x2, and the ablation occurred over 120 seconds. The Isabel w as then removed and there was a great deal of tissue burned on the array. A final inspection with th e hysteroscope revealed no further bleeding. Good aileen of the endometrium and a normal cavity. The hysteroscope was removed. The tenaculum was removed. There was no bleeding on the anterior lip of t he cervix. The patient tolerated the procedure well. Sponge, lap, needle, and instrument counts wer e correct x2. FLUID DEFICIT: 290 cc. IV FLUIDS: 600 cc. /[id number]/MODL
[2017-10-07] MEDS: OLANZapine 2.5 MG TAB PO SCH (21:59)
[2017-10-07] MEDS: ATORVASTATIN CALCIUM 10 MG TAB PO SCH (21:59)
[2017-10-08 04:15] LABS: PLATELET COUNT 131 10^3/uL (150-400)
[2017-10-08] MEDS: NS 1,000 ML IV SCH (08:03)
[2017-10-08] MEDS: INSULIN LISPRO 100 UNIT/ML SC SCH ×3 (08:13→17:32)
[2017-10-08] MEDS: GABAPENTIN 300 MG CAP PO SCH ×3 (08:13→22:43)
[2017-10-08] MEDS: INSULIN GLARGINE 100 UNITS/ML UNIT SC SCH (08:13)
--- NOTE | 2017-10-08 11:20 | SOAPPROG ---
SOAP Progress Note Assessment/Plan: Assessment: 42 y/o with h/o DVT/ PE and severe menorrhagia causing symptomatic anemia. Plan: Pt is POD #1 s/p Hysteroscopy dilation and curettage with Isabel endometrial ablation. Surgery went well and was successful to stop her vaginal bleeding. her frozen section of endometrial curettings was benign and I do not suspect malignancy or hyperplasia as a cause of her menorrhagia. I recommend iron supplementation TID to build her stores to overcome her anemia and she is not a candidate for exogenous estrogen due to her history of PE. I will leave glucose control and the timing of restarting her anti-coagulants to her Medicine team. Pt may follow-up with me for any Gynecological concerns but will sign off for now unless any other issues develop. I personally spoke to the patient and her adult son and answered all questions regarding her surgery and post op instructions. 10/06/17 19:20 10/08/17 11:21 Subjective: Pt is doing much better today. Her bleeding has resolved now, just slight brown vaginal discharge. She is ambulating and voiding without dizziness. She feels slightly edematous. She would like to d/c home today. Objective: Vital Signs Temp Pulse Resp BP Pulse Ox 36.8 C 84 16 112/59 L 94 10/08/17 09:58 10/08/17 09:58 10/08/17 09:58 10/08/17 09:58 10/08/17 09:58 Laboratory Results 10/08/17 04:00 10/08/17 04:00 10/07/17 10/08/17 10/09/17 05:59 05:59 05:59 Intake Total 1200 2217 480 Output Total 1600 2350 300 Balance -400 -133 180 PT 16.9 SEC (12.0-15.0) H 10/06/17 10:10 INR 1.36 (0.83-1.16) H 10/06/17 10:10 - Pending Discharge Pending Discharge Within 24 Hours: Yes Pending Discharge Date: 10/09/17 Pending Discharge Time: 11:00 Physical Exam - Physical Exam General Appearance: WD/WN, alert, no apparent distress Neck: non-tender, full range of motion, supple Respiratory: chest non-tender, lungs clear, normal breath sounds Cardiac/Chest: regular rate, rhythm Abdomen: normal bowel sounds, non-tender, soft Pelvic Exam: deferred Extremities: swelling (tr), Kailyn's sign (neg) ICD10 Worksheet Patient Problems: Problems Problem Status Onset Anemia Acute Hyperglycemia Acute Vaginal bleeding Acute
[2017-10-08] MEDS ORDERED: INSULIN GLARGINE 100 UNITS/ML UNIT SC ONE (12:45)
--- NOTE | 2017-10-08 12:51 | HOSPPROG ---
Hospitalist Progress Note Assessment/Plan: #Acute blood loss anemia, s/p D&C with endometrial ablation #Menorrhagia #chronic AC #RLE DVT and bilateral PE's -RLE with chronic DVT findings, non occlusive #DMII with Hyperglycemia -A1C is pending -increase Lantus #Hyponatremia, resolved #Pedal edema, minimal #Hypotension, still with soft BP, no tachycardia #RUE swelling, around PICC -remove PICC -check doppler to r/o DVT Plan: -BP is still soft and Hgb is in the 7's. No tachycardia. Will monitor overnight -She feels puffy but given soft BP, will not start diuretic -Increase Lantus today -Start FeSO4 -Can resume Xarelto tomorrow upon discharge if stable -Remove PICC -If Hgb is still low tomorrow, consider one additional unit if BP is soft SCDs Full Code Subjective: feels a bit puffy. BP is still soft. No tachycardia. More alert. no cp or sob. no further vaginal bleeding Objective: Vital Signs Temp Pulse Resp BP Pulse Ox 36.6 C 92 17 106/82 H 97 10/08/17 12:00 10/08/17 12:00 10/08/17 12:00 10/08/17 12:00 10/08/17 12:00 Laboratory Results 10/08/17 04:00 10/08/17 04:00 10/07/17 10/08/17 10/09/17 05:59 05:59 05:59 Intake Total 1200 2217 480 Output Total 1600 2350 300 Balance -400 -133 180 PT 16.9 SEC (12.0-15.0) H 10/06/17 10:10 INR 1.36 (0.83-1.16) H 10/06/17 10:10 - Physical Exam Constitutional: no apparent distress Eyes: PERRL, EOMI Ears, Nose, Mouth, Throat: moist mucous membranes, hearing normal Cardiovascular: regular rate and rhythym, edema (trace B LE, trace RUE) Respiratory: no respiratory distress, no rales or rhonchi Gastrointestinal: normoactive bowel sounds, soft, non-tender abdomen Genitourinary: no bladder fullness Skin: warm Musculoskeletal: No generalized weakness Neurologic: AAOx3 Psychiatric: interacting appropriately, not anxious ICD10 Worksheet Patient Problems: Problems Problem Status Onset Anemia Acute Hyperglycemia Acute Vaginal bleeding Acute
[2017-10-08] MEDS: FERROUS SULFATE 325 MG TAB PO SCH ×2 (13:35→22:43)
[2017-10-08] MEDS: ATORVASTATIN CALCIUM 10 MG TAB PO SCH (22:43)
[2017-10-08] MEDS: OLANZapine 2.5 MG TAB PO SCH (22:43)
--- NOTE | 2017-10-09 07:50 | HOSPPROG ---
Hospitalist Progress Note Assessment/Plan: #Acute blood loss anemia: due to menometrorrhagia. Repeat H/H this afternoon. #RUE swelling: due to clot. Elevate, warm compression #Menometrorrhagia: s/p DC.2/3 #PICC-associated RUE DVT: will need to restart Xarelto. Monitor closely with anemia. PICC removed #Uncontrolled diabetes: A1c 6.8%. Has been on Metformin only for a short-time. Educated on exercise and diet. Lantus while here. #Hypotension: resolved #Hyponatremia: resolved #Diet: regular #DVT ppx: SCDs #Disp: warrants inpatient admission for repeat H/H/ Subjective: right arm swollen and hurts above elbow Objective: Vital Signs Temp Pulse Resp BP Pulse Ox 36.8 C 97 16 100/66 93 10/09/17 07:31 10/09/17 07:31 10/09/17 07:31 10/09/17 07:31 10/09/17 07:31 Laboratory Results 10/08/17 04:00 10/08/17 04:00 10/08/17 10/09/17 10/10/17 05:59 05:59 05:59 Intake Total 2217 1830 Output Total 2350 1900 Balance -133 -70 PT 16.9 SEC (12.0-15.0) H 10/06/17 10:10 INR 1.36 (0.83-1.16) H 10/06/17 10:10 - Physical Exam Constitutional: obese Eyes: PERRL Ears, Nose, Mouth, Throat: moist mucous membranes Cardiovascular: regular rate and rhythym, no murmur, rub, or gallop Respiratory: no respiratory distress, no rales or rhonchi Gastrointestinal: normoactive bowel sounds Genitourinary: no bladder fullness Skin: warm Musculoskeletal: other (RUE swollen from wrist to elbow. +2 radial pulse) Neurologic: AAOx3, CN II-XII Intact Psychiatric: interacting appropriately ICD10 Worksheet Patient Problems: Problems Problem Status Onset Anemia Acute Hyperglycemia Acute Vaginal bleeding Acute
[2017-10-09 08:19] LABS: PLATELET COUNT 151 10^3/uL (150-400)
[2017-10-09] MEDS ORDERED: INSULIN GLARGINE 100 UNITS/ML UNIT SC SCH (09:00)
[2017-10-09] MEDS: GABAPENTIN 300 MG CAP PO SCH ×3 (10:00→21:17)
[2017-10-09] MEDS: FERROUS SULFATE 325 MG TAB PO SCH ×2 (10:00→21:17)
[2017-10-09] MEDS: INSULIN LISPRO 100 UNIT/ML SC SCH ×3 (10:01→21:53)
[2017-10-09] MEDS ORDERED: RIVAROXABAN 20 MG TAB PO SCH ×2 (16:15→18:00)
--- NOTE | 2017-10-09 16:16 | ASMTCMCOM ---
CM Note CM Note Notes: 10/09/2017 Case Management Note Reviewed pt in rounds. There are no PT or OT evals ordered at this time. There are no case management d/c needs identified at this time d/t pt age and family friend support, and activity levels prior to admission. Case Management d/c poc: anticipating independent with follow up as directed. Case Management available if needs change. Date Signed: 10/09/2017 03:25 PM Electronically Signed By:Elena Acevedo RN
[2017-10-09] MEDS: ATORVASTATIN CALCIUM 10 MG TAB PO SCH (21:17)
[2017-10-09] MEDS: OLANZapine 2.5 MG TAB PO SCH (21:17)
[2017-10-10 08:10] VITALS: BP 113/70; PULSE 76; RESP 18; TEMP 98; O2SAT 96
[2017-10-10] MEDS: INSULIN LISPRO 100 UNIT/ML SC SCH ×2 (09:44→11:52)
[2017-10-10] MEDS: FERROUS SULFATE 325 MG TAB PO SCH (09:46)
[2017-10-10] MEDS: GABAPENTIN 300 MG CAP PO SCH (09:46)
[2017-10-10] MEDS: INSULIN GLARGINE 100 UNITS/ML UNIT SC SCH ×2 (09:47→11:49)
--- NOTE | 2017-10-10 14:38 | GDS ---
[f rep st] DISCHARGE SUMMARY DISCHARGE DIAGNOSES: 1. Acute blood loss anemia. 2. Right upper extremity swelling. 3. Menometrorrhagia, status post dilation/curettage. 4. Acute PICC-associated right upper extremity deep vein thrombosis. 5. Diabetes with hyperglycemia. 6. Hypotension. 7. Hyponatremia. 8. History of gastritis. 9. Bipolar disorder. 10. History of polysubstance abuse. PROCEDURES: 10/07/2017: Hysteroscopy, ablation, dilatation/curettage. HISTORY OF PRESENT ILLNESS: A 42-year-old female with recent hospitalization in September for right lower extremity DVT and bilateral pulmonary embolism, who was started on Xarelto. She presented with vaginal bleeding and hemoglobin 5.1. She reported weakness and large clots from the vagina. She does have a history of menorrhagia. Denies chest pain, shortness of breath, dizziness, and syncope. HOSPITAL COURSE BY PROBLEM: 1. Symptomatic acute blood loss anemia: due to menorrhagia. Gynecology was consulted and performed a hysteroscopy and dilation and curettage, with Isabel endometrial ablation. This was successful in stopping her vaginal bleeding. She will be started on p.o. iron at discharge. I provided patient with a prescription to check a CBC with her primary care provider tomorrow at [facility]. 2. Acute right upper extremity DVT: related to PICC line that was removed. Was recently diagnosed with bilateral pulmonary PE's and right leg DVT. Given acute blood-loss anemia, will not start a treatment dose of Xarelto; rather, continuer home dose of 20 mg. H/H were stable with resuming Xarelto last night. She was given strict return precautions if has increased bleeding. 3. Right leg DVT/PE's: Xarelto. 4. Bipolar disorder: Continue home medications. 5. Diabetes with hyperglycemia: Her A1c was 6.8 here. She was started on glargine, because Tradjenta is non formulary here. She was recently started on metformin. Educated on diet. 6. Hyperlipidemia: Statin. DISPOSITION: Patient is stable for discharge. NEW MEDICATIONS: None. FOLLOWUP: [facility] on 10/11/2017 for repeat CBC. SUBJECTIVE: No vaginal bleeding. No dizziness or lightheadedness. PHYSICAL EXAMINATION: VITAL SIGNS: Temperature 36.6, blood pressure 113/70, heart rate 76, respirations 18, and 96 in room air. GENERAL: Well-appearing, sitting up in bed, in no acute distress. HEENT: PERRLA. EOMI. Oropharynx clear. Moist mucous membranes. CV: Regular rate and rhythm. No murmurs, gallops, or rubs. LUNGS: Clear to auscultation. ABDOMEN: Soft, nontender, nondistended. Positive bowel sounds. : No suprapubic tenderness. MUSCULOSKELETAL: 5/5 upper and lower extremity strength. NEURO: 2 through 12 intact. PSYCH: Alert and oriented x3.. /[id number]/MODL MTDD
== END 2017-10-10 12:10 | disposition home or self-care (01) | DRG 742 ==
LOC: EDUNIT# → F2W 12:55
PROVIDERS: ADMIT Family Medicine; ATTEND Family Medicine
PROC: 02HV33Z Insertion of Infusion Device into Superior Vena Cava, Percutaneous Approach (ICD-10-PCS; 2017-10-06)
PROC: 30233N1 Transfusion of Nonautologous Red Blood Cells into Peripheral Vein, Percutaneous Approach (ICD-10-PCS; 2017-10-06)
PROC: 0UDB7ZZ Extraction of Endometrium, Via Natural or Artificial Opening (ICD-10-PCS; principal; 2017-10-07 15:00)
PROC: 0UJD8ZZ Inspection of Uterus and Cervix, Via Natural or Artificial Opening Endoscopic (ICD-10-PCS; principal; 2017-10-07 15:00)
PROC: 0U5 Female Reproductive System, Destruction (ICD-10-PCS; principal; 2017-10-07 15:00)
DX: N92.1 Excessive and frequent menstruation with irregular cycle (principal); D62 Acute posthemorrhagic anemia; T82.868A Thrombosis due to vascular prosthetic devices, implants and grafts, initial encounter; I82.621 Acute embolism and thrombosis of deep veins of right upper extremity; I82.611 Acute embolism and thrombosis of superficial veins of right upper extremity; I82.541 Chronic embolism and thrombosis of right tibial vein; Z86.711 Personal history of pulmonary embolism; Z79.01 Long term (current) use of anticoagulants; E11.65 Type 2 diabetes mellitus with hyperglycemia; E87.1 Hypo-osmolality and hyponatremia; F31.81 Bipolar II disorder; Z87.891 Personal history of nicotine dependence
CPT/HCPCS: 82947-QW; C1751; J1815; J2704; J3010; P9016